=== PATIENT | male | born 1960 | race Two or more races ===

== ENCOUNTER 2022-02-20 23:07 | Inpatient (IN) | payer BC ==
[~2022-02-20] VITALS: Ht 185.4 cm; Wt 107.0 kg
[2022-02-20] MEDS ORDERED: ASPIRIN 81MG TABLET PO ONE (23:45)
[2022-02-21 01:12] LABS: BASOPHILS % 0.3 % (0.0-2.0); EOSINOPHILS % 4.5 % (0.0-5.0); HEMATOCRIT. 35.3 % (42.0-52.0); HEMOGLOBIN. 12.2 g/dL (14.0-18.0); LYMPHOCYTES % 17.6 % (20.0-50.0); MEAN CORPUSCULAR HEMOGLOBIN 29.7 pg (28.0-32.0); MEAN CORPUSCULAR VOLUME 85.9 fL (80.0-94.0); MEAN PLATELET VOLUME 8.5 fl (7.4-10.4); MONOCYTES % 10.7 % (2.0-8.0); NEUTROPHILS % 66.9 % (40.0-76.0); PLATELET 572 x1000/uL (130-400); RED CELL DISTRIBUTION WIDTH 13.2 % (11.6-14.6)
[2022-02-21 01:17] LABS: CHLORIDE 91 mEq/L (98-107)
[2022-02-21 01:21] LABS: ETHANOL BLOOD < 10 mg/dL
[2022-02-21] MEDS ORDERED: ONDANSETRON 4MG ODT PO ONE (01:30)
[2022-02-21] MEDS ORDERED: SODIUM CHLORIDE 0.9% 1,000 ML IV ONE ×2 (01:30→04:00)
[2022-02-21 07:08] LABS: CLARITY URINE CLEAR (CLEAR); COLOR URINE YELLOW (YELLOW); KETONES URINE NEGATIVE (NEGATIVE); LEUKOCYTE ESTERASE URINE NEGATIVE (NEGATIVE); NITRITE URINE NEGATIVE (NEGATIVE); OCCULT BLOOD URINE 3+ (NEGATIVE); PH URINE 7.5 (4.5-8.0); PROTEIN URINE 1+ (NEGATIVE); SPECIFIC GRAVITY URINE 1.011 (1.005-1.030); UROBILINOGEN URINE 0.2 E.U./dL (0.2-1.0)
[2022-02-21 07:21] LABS: *AMPHETAMINES SCREEN URINE NEGATIVE (NEGATIVE)
[2022-02-21 07:22] LABS: *BARBITURATES SCREEN URINE NEGATIVE (NEGATIVE); *BENZODIAZEPINES SCREEN URINE NEGATIVE (NEGATIVE); *COCAINE SCREEN URINE NEGATIVE (NEGATIVE); METHADONE URINE SCREEN NEGATIVE (NEGATIVE); OPIATES URINE SCREEN NEGATIVE (NEGATIVE); PHENCYCLIDINE URINE SCREEN NEGATIVE (NEGATIVE)
[2022-02-21 07:23] LABS: CANNABINOID URINE SCREEN NEGATIVE (NEGATIVE)
[2022-02-21] MEDS ORDERED: MORPHINE SULFATE 2 MG/ML CPJ (NOT FOR IM USE) IV PRN (09:30)
[2022-02-21] MEDS ORDERED: DOCUSATE SODIUM 100MG CAPSULE PO PRN (09:30)
[2022-02-21] MEDS ORDERED: ONDANSETRON HCL 4MG/2ML INJ IV PRN (09:30)
[2022-02-21] MEDS ORDERED: NITROGLYCERIN 0.4MG TABLET SL SL PRN (09:30)
[2022-02-21] MEDS ORDERED: LORAZEPAM 2MG/ML CPJ IV PRN (09:30)
[2022-02-21] MEDS ORDERED: ACETAMINOPHEN 650MG SUPP PR PRN ×2 (09:30)
[2022-02-21 10:15] LABS: FOLIC ACID (FOLATE) SERUM >20 ng/mL ng/mL (>5.38)
[2022-02-21 10:27] LABS: VITAMIN B12 SERUM 536 pg/mL (211-911)
[2022-02-21 12:00] VITALS: BP 164/97
[2022-02-21] MEDS: KETOROLAC 15MG/ML VIAL IV PRN ×3 (13:04→21:07)
[2022-02-21] MEDS: PANTOPRAZOLE SODIUM 40 MG/VIAL IV SCH (13:04)
[2022-02-21] MEDS: ENOXAPARIN 40MG/0.4ML SYR SUBCUT SCH (13:05)
[2022-02-21 16:00] VITALS: BP 153/99
[2022-02-21] MEDS ORDERED: AMLO10TA4 PO (16:12)
[2022-02-21] MEDS: DEXT 5%/LACTATED RINGERS 1,000 ML IV SCH ×2 (16:44→23:23)
[2022-02-21] MEDS ORDERED: HYDRALAZINE 20MG/ML VIAL IV PRN (16:45)
[2022-02-21] MEDS ORDERED: HYDRALAZINE 10 MG in SODIUM CHLORIDE 0.9% 49.5 ML IV PRN (17:00)
[2022-02-21 20:00] VITALS: BP 158/84
[2022-02-21] MEDS ORDERED: PNEUMOCOCCAL 23-VAL P-SAC VAC 0.5 ML IM ONE (20:00)
[2022-02-21] MEDS ORDERED: INFLUENZA VACCINE 05/PF 0.5 ML SYRINGE IM ONE (20:00)
[2022-02-21] MEDS ORDERED: AMLO10TA80 MT (20:03)
[2022-02-22] VITALS: BP 138/96
[2022-02-22] MEDS: KETOROLAC 15MG/ML VIAL IV PRN ×3 (03:22→18:04)
[2022-02-22 04:00] VITALS: BP 140/87
[2022-02-22] MEDS: DEXT 5%/LACTATED RINGERS 1,000 ML IV SCH ×5 (06:18→22:31)
[2022-02-22 08:00] VITALS: BP 148/92
[2022-02-22] MEDS: PANTOPRAZOLE SODIUM 40 MG/VIAL IV SCH (08:27)
[2022-02-22] MEDS: ENOXAPARIN 40MG/0.4ML SYR SUBCUT SCH (08:28)
[2022-02-22 09:00] LABS: BASOPHILS % 0.4 % (0.0-2.0); EOSINOPHILS % 3.8 % (0.0-5.0); HEMATOCRIT. 33.8 % (42.0-52.0); HEMOGLOBIN. 11.6 g/dL (14.0-18.0); LYMPHOCYTES % 24.5 % (20.0-50.0); MEAN CORPUSCULAR HEMOGLOBIN 28.9 pg (28.0-32.0); MEAN CORPUSCULAR VOLUME 84.5 fL (80.0-94.0); MEAN PLATELET VOLUME 8.9 fl (7.4-10.4); NEUTROPHILS % 58.3 % (40.0-76.0); PLATELET 568 x1000/uL (130-400); RED CELL DISTRIBUTION WIDTH 13.4 % (11.6-14.6)
[2022-02-22 09:27] LABS: PHOSPHORUS 3.4 mg/dL (2.5-4.9)
[2022-02-22 12:00] VITALS: BP 169/102
[2022-02-22] MEDS: HYDRALAZINE 10 MG in SODIUM CHLORIDE 0.9% 49.5 ML IV SCH ×2 (13:29→18:05)
[2022-02-22] MEDS: KCL 20MEQ/100ML PREMIX 100 ML IV SCH ×2 (14:45→18:05)
[2022-02-22 16:00] VITALS: BP 158/96
[2022-02-22] MEDS ORDERED: HYDRALAZINE 20MG/ML VIAL IV SCH (18:00)
[2022-02-22 20:00] VITALS: BP 151/85
[2022-02-23] VITALS: BP 167/95
[2022-02-23] MEDS: HYDRALAZINE 10 MG in SODIUM CHLORIDE 0.9% 49.5 ML IV SCH ×3 (00:42→13:47)
[2022-02-23] MEDS: KETOROLAC 15MG/ML VIAL IV PRN ×2 (00:44→20:16)
[2022-02-23 04:00] VITALS: BP 138/89
[2022-02-23] MEDS: DEXT 5%/LACTATED RINGERS 1,000 ML IV SCH (07:41)
[2022-02-23] MEDS: PANTOPRAZOLE SODIUM 40 MG/VIAL IV SCH (08:54)
[2022-02-23] MEDS: ENOXAPARIN 40MG/0.4ML SYR SUBCUT SCH (08:55)
[2022-02-23 09:42] LABS: PHOSPHORUS 2.6 mg/dL (2.5-4.9)
[2022-02-23 12:00] VITALS: BP 142/88
[2022-02-23] MEDS: LOSARTAN POTASSIUM 50 MG TABLET PO SCH (15:10)
[2022-02-23 16:00] VITALS: BP 152/82
[2022-02-23] MEDS ORDERED: CYANOCOBALAMIN 1000MCG/ML VIAL IM NR (17:00)
[2022-02-23] MEDS ORDERED: POTASSIUM CHLORIDE INJ 40 MEQ in DEXT 5% WATER 500 ML IV SCH (17:00)
[2022-02-23 19:30] VITALS: BP 98/65
[2022-02-23] MEDS: IPRATROPIUM/ALBUTEROL 0.5-3(2.5)MG/3ML NEB HHN SCH (20:20)
[2022-02-24] VITALS: BP 137/86
[2022-02-24 04:00] VITALS: BP 138/79
[2022-02-24] MEDS: IPRATROPIUM/ALBUTEROL 0.5-3(2.5)MG/3ML NEB HHN SCH ×2 (04:00)
[2022-02-24 08:00] VITALS: BP 158/86
[2022-02-24] MEDS: LOSARTAN POTASSIUM 50 MG TABLET PO SCH (08:30)
[2022-02-24] MEDS: ENOXAPARIN 40MG/0.4ML SYR SUBCUT SCH (08:30)
[2022-02-24] MEDS: PANTOPRAZOLE SODIUM 40 MG/VIAL IV SCH (08:30)
[2022-02-24] MEDS ORDERED: POTASSIUM CHLORIDE 20MEQ TABLET SR PO SCH (10:15)
[2022-02-24 12:00] VITALS: BP 138/87
[2022-02-24 16:00] VITALS: BP 140/88
[2022-02-24 17:39] VITALS: BP 150/85
[2022-02-24] MEDS ORDERED: PNEUMOCOCCAL 23-VAL P-SAC VAC 0.5 ML IM ONE (18:00)
== END 2022-02-24 19:05 | disposition home or self-care (01) | DRG 388 ==
LOC: ER 23:07 → 6EST 02-21 04:54 → ENRESERV 02-21 10:11 → ER 02-21 11:32 → 6EST 02-21 16:59
PROVIDERS: ADMIT Internal Medicine; ATTEND Internal Medicine
PROC: 0D9670Z Drainage of Stomach with Drainage Device, Via Natural or Artificial Opening (ICD-10-PCS; principal; 2022-02-21)
PROC: 02HV33Z Insertion of Infusion Device into Superior Vena Cava, Percutaneous Approach (ICD-10-PCS; 2022-02-22)
PROC: B518ZZA Fluoroscopy of Superior Vena Cava, Guidance (ICD-10-PCS; 2022-02-22)
PROC: B548ZZA Ultrasonography of Superior Vena Cava, Guidance (ICD-10-PCS; 2022-02-22)
DX: K56.609 Unspecified intestinal obstruction, unspecified as to partial versus complete obstruction (principal); N17.0 Acute kidney failure with tubular necrosis; E66.9 Obesity, unspecified; E86.0 Dehydration; E87.6 Hypokalemia; I10 Essential (primary) hypertension; Z79.899 Other long term (current) drug therapy; Z68.31 Body mass index [BMI] 31.0-31.9, adult; Z90.49 Acquired absence of other specified parts of digestive tract
CPT/HCPCS: 36415; 36573; 71045; 74018; 74176; 80048; 80053; 80305; 80320; 81003; 82607; 82746; 83036; 83540; 83550; 83735; 83880; 84100; 84484; 85025; 90732; 93005; 93970; 99285; C1725; C1893; C9113; J0360; J1650; J1885; J2270; J3420; J3480; J7030; J7060; J7121; Q0162; G0480

== ENCOUNTER → 2024-03-15 | Outpatient (CLI) | payer BC ==
[~2024-03-15] MED LIST: AMLO10TA80 MT
[2024-03-15 12:20] LABS: BASOPHILS % 0.9 % (0.0-2.0); EOSINOPHILS % 4.7 % (0.0-5.0); HEMATOCRIT. 39.7 % (42.0-52.0); HEMOGLOBIN. 13.5 g/dL (14.0-18.0); LYMPHOCYTES % 42.4 % (20.0-50.0); MEAN CORPUSCULAR HEMOGLOBIN 29.6 pg (28.0-32.0); MEAN CORPUSCULAR VOLUME 86.9 fL (80.0-94.0); MONOCYTES % 8.9 % (2.0-8.0); NEUTROPHILS % 43.1 % (40.0-76.0); PLATELET 271 x1000/uL (130-400); RED BLOOD CELL COUNT 4.57 mill/uL (4.7-6.1); RED CELL DISTRIBUTION WIDTH 13.3 % (11.6-14.6)
[2024-03-15 12:34] LABS: CHLORIDE 101 mEq/L (98-107); SODIUM 140 mEq/L (136-145)
[2024-03-15 12:36] LABS: CALCIUM 9.9 mg/dL (8.7-10.4); CARBON DIOXIDE 33 mEq/L (21-32)
[2024-03-15 12:41] LABS: CREATININE 1.3 mg/dL (0.6-1.3); GLUCOSE 93 mg/dL (70-105); TRIGLYCERIDE 146 mg/dL (0-150); UREA NITROGEN BLOOD 11 mg/dL (9-23)
[2024-03-15 12:42] LABS: LDL CHOLESTEROL 144 mg/dL (5-100)
[2024-03-15 12:43] LABS: ALANINE AMINOTRANSFERASE 22 IU/L (10-49); ALBUMIN 4.3 g/dL (3.2-4.8); ASPARTATE AMINOTRANSFERASE 26 IU/L (<34); BILIRUBIN TOTAL 0.6 mg/dL (0.1-1.0); CHOLESTEROL 185 mg/dL (<200); HDL CHOLESTEROL 33 mg/dL (>55); PROTEIN TOTAL 7.6 g/dL (6.0-8.3)
== END | disposition home or self-care (01) ==
LOC: LAB 11:08
PROVIDERS: ATTEND Internal Medicine
DX: I10 Essential (primary) hypertension (principal)
CPT/HCPCS: 36415; 80053; 80061; 84153; 85025